=== PATIENT | female | born 1955 | race Caucasian/White ===

== ENCOUNTER → 2023-11-03 11:20 | Outpatient (REF) | payer MEDICARE, BC, SELFPAY | LOC: HWRAD 11:20 | PROVIDERS: ATTENDING PHYSICIAN Nurse Practitioner Family; FAMILY PHYSICIAN Internal Medicine | DX: E55.9 Vitamin D deficiency, unspecified (principal); Z78.0 Asymptomatic menopausal state | CPT/HCPCS: 77080; 77081 ==

== ENCOUNTER → 2024-05-25 13:50 | Outpatient (REF) | payer MEDICARE, BC, SELFPAY | LOC: HWRCS 13:50 | PROVIDERS: ATTENDING PHYSICIAN Internal Medicine Cardiovascular Disease; FAMILY PHYSICIAN Internal Medicine | DX: I49.1 Atrial premature depolarization (principal); I10 Essential (primary) hypertension; I34.1 Nonrheumatic mitral (valve) prolapse | CPT/HCPCS: 93306 ==

== ENCOUNTER → 2024-08-25 12:20 | Outpatient (REF) | payer MEDICARE, BC, SELFPAY | LOC: HWWDC 12:20 | PROVIDERS: ATTENDING PHYSICIAN Internal Medicine | DX: Z12.31 Encounter for screening mammogram for malignant neoplasm of breast (principal) | CPT/HCPCS: 77063; 77067 ==

== ENCOUNTER → 2024-09-14 15:48 | Outpatient (REF) | payer MEDICARE, BC, SELFPAY | LOC: HWRAD 15:48 | PROVIDERS: FAMILY PHYSICIAN Internal Medicine | DX: M79.672 Pain in left foot (principal); M25.572 Pain in left ankle and joints of left foot | CPT/HCPCS: 73610; 73630 ==

== ENCOUNTER → 2025-08-09 10:42 | Outpatient (REF) | payer MEDICARE, BC, SELFPAY | LOC: HWRAD 10:42 | PROVIDERS: ATTENDING PHYSICIAN Internal Medicine | DX: I10 Essential (primary) hypertension (principal); R91.1 Solitary pulmonary nodule | CPT/HCPCS: 71250 ==